=== PATIENT | female | born 1950 | race Caucasian/White ===

== ENCOUNTER 2020-06-14 06:25 | Day surgery (SDC) | payer MEDICARE ==
[~2020-06-14] VITALS: Ht 170.2 cm; Wt 86.2 kg
[2020-06-14] MEDS ORDERED: AVAPRO150 MG PO (06:41)
[2020-06-14] MEDS ORDERED: HYDROCHLOROTHIA25 MG PO (06:41)
[2020-06-14] MEDS ORDERED: ADULT LOW DOSE81 MG PO (06:41)
[2020-06-14] MEDS ORDERED: OMEGA 3 1,0001 EACH PO (06:41)
[2020-06-14] MEDS ORDERED: JANUVIA50 MG PO (06:42)
[2020-06-14] MEDS ORDERED: OMEPRAZOLE20 MG PO (06:42)
[2020-06-14] MEDS ORDERED: CRESTOR10 MG PO (06:42)
--- NOTE | 2020-06-14 07:57 | NUR ---
06/14/20 0757 Sally Hickey 0755-PATIENT ARRIVED TO PACU ON 2L NC AWAKE DROWSY DENIES PAIN OR NAUSEA. ABDOMEN SOFT. IVF INFUSING.
--- NOTE | 2020-06-14 16:13 | OR ---
[facility] [address] [place], [place] [address] Signed DATE OF OPERATION: 06/14/2020 SURGEON: Berta Braxton MD PREOPERATIVE DIAGNOSES: Longstanding gastroesophageal reflux, presumed hiatal hernia, controlled with PPI medication. POSTOPERATIVE DIAGNOSES: Hiatal hernia without associated esophagitis or Mckinley's epithelium. PROCEDURE: Esophagogastroduodenoscopy with biopsy. ANESTHESIA: Intravenous sedation, fentanyl 100 mcg, Versed 3 mg. INDICATION: This 69-year-old white woman is a patient Dr. Montenegro at [facility] and is referred for upper endoscopy for a longstanding reflux disease. She has failed treatment without PPI medication as regards to recurrence of symptoms. She currently has no dysphagia or substernal burning pain. She is here at this time to undergo upper endoscopy to better characterize the level of esophagitis and to assess for Mckinley's epithelium and she has never had endoscopic evaluation of the esophagus before. She understands the risks of bleeding, infection, perforation, and so forth and wished to proceed. FINDINGS: The esophagus was essentially normal with no evidence of esophagitis or Mckinley's epithelium. There was a hiatal hernia indeed. Stomach and duodenum were normal. CLOtest was negative 20 minutes post procedure. DESCRIPTION OF PROCEDURE: The patient was brought to the endoscopy suite and given topical Hurricaine spray hypopharyngeal anesthesia and placed in lateral decubitus position. She was given intravenous sedation to the point of slurred speech and nystagmus with full cardiopulmonary monitoring. A bite block was placed. An Olympus video upper endoscope was passed in the hypopharynx. The vocal cords were well visualized and found to be normal. The scope was advanced to the esophagus throughout its length. It appeared normal including the distal portion without signs of Mckinley's epithelium stricture, neoplasm or varices. The scope was advanced to the stomach, which was insufflated with Electronically Signed By: BERTA BRAXTON MD 06/14/20 1613 PATIENT NAME: JERARDO CHAU OPERATIVE REPORT DATE OF : 50 REPORT #: [id number] PHYSICIAN: BERTA BRAXTON MD PCP: CRYSTAL VALDEZ REPORT IS CONFIDENTIAL AND NOT TO BE RELEASED WITHOUT AUTHORIZATION [facility] [address] [place], [place] [address] Signed air. Rugal folds were normal. Antral motility was normal. The pylorus was normal and the scope was passed through into the duodenum, which was normal. Biopsies were taken of the second and third portions. A careful inspection of bulbar portion showed no ulceration. The scope was withdrawn to the antrum where biopsies were obtained for both MAGGI and pathologic testing. Retroflexed view was undertaken confirming a hiatal hernia, moderate in size. The scope was straightened, withdrawn and distal esophageal biopsies were obtained though there was no sign of abnormality proper. Careful withdrawal of scope showed only minimal superficial nodular changes of the mucosa. Biopsies were taken of the mid esophagus. Scope was carefully withdrawn further and there were no other findings of concern. The patient was taken to the recovery room in good condition. CONCLUDING DIAGNOSIS: Hiatal hernia without sign of active esophagitis on PPI medication. Mindful of the potential side effects of PPI medication, it is most likely she would benefit from continued use of those for symptom control as the lesser agents such as H2 blockers have been ineffective completely. We have reviewed the potential side effects of PPI medication, but in aggregate, the risk and benefit ratio would favor continued use of that medication. Berta Braxton MD JM/MODL /[id number] cc: Lyly Montenegro MD Copies: LYLY MONTENEGRO MD ~ Electronically Signed By: BERTA BRAXTON MD 06/14/20 1613 PATIENT NAME: KANDIJERARDONATHANIEL BILL OPERATIVE REPORT DATE OF : 50 REPORT #: [id number] PHYSICIAN: BERTA BRAXTON MD PCP: CRYSTAL VALDEZ REPORT IS CONFIDENTIAL AND NOT TO BE RELEASED WITHOUT AUTHORIZATION
--- NOTE | 2020-06-15 10:03 | PATH ---
[facility] [address] [place], [place] [address] Signed SPECIMEN(S): A DUODENUM SPECIMEN(S): B ANTRUM SPECIMEN(S): C DISTAL ESOPHAGUS SPECIMEN(S): D MID ESOPHAGUS SPECIMEN SOURCE: A. DUODENUM B. ANTRUM C. DISTAL ESOPHAGUS D. MID ESOPHAGUS CLINICAL HISTORY: GERD. MICROSCOPIC DESCRIPTION: A, B. Histologic sections of all submitted blocks are examined by light microscopy. These findings, together with the gross examination, support the pathologic diagnosis. C. Sections reveal biopsies of esophageal mucosa composed of both glandular and squamous mucosa. The squamous mucosa has a mildly prominent basal cell layer, but rete ridges are not elongated. Intraepithelial eosinophils are not a feature. Small numbers of plasma cells and lymphocytes are present within the squamous mucosa. The glandular mucosa has an intact surface epithelium and has retained mucus secreting ability. The lamina propria contains a few plasma cells and lymphocytes. No goblet cells are seen. There is no evidence of malignancy or atypia. D. Sections reveal a biopsy of esophageal mucosa composed of stratified squamous nonkeratinizing epithelium. The basal cell layer is not prominent and rete ridges are not elongated. No intraepithelial lymphocytes are seen. There is no evidence of malignancy or atypia. LJA:cml FINAL PATHOLOGIC DIAGNOSIS: A. Mucosa, duodenum, biopsy: - Small intestinal mucosa with normal villiform architecture, no microscopic pathologic diagnosis. B. Mucosa, antrum, biopsy: - No microscopic pathologic diagnosis. - Negative for the presence of bacteria morphologically consistent with PATIENT NAME: JERARDO CHAU PATHOLOGY DATE OF : 50 REPORT #: [id number] PHYSICIAN: ROHITH SOTO PCP: CRYSTAL VALDEZ REPORT IS CONFIDENTIAL AND NOT TO BE RELEASED WITHOUT AUTHORIZATION [facility] [address] [place], [place] [address] Signed Helicobacter on HE stained sections. C. Mucosa, distal esophagus, biopsy: - Mild chronic esophagitis with features suggestive but not diagnostic of reflux. D. Mucosa, mid esophagus, biopsy: - No microscopic pathologic diagnosis. LJA:cml:C2NR GROSS DESCRIPTION: Four specimens are received in four containers, labeled "VR." A. The specimen, labeled "VR, 1," and designated on the requisition "duodenum," is received in formalin and consists of two rosa soft tissue fragments that measure 0.3 cm in greatest dimension. The specimen is entirely submitted in cassette (A1). B. The specimen, labeled "VR, 2," and designated on the requisition "antrum," is received in formalin and consists of two rosa soft tissue fragments that measure 0.4 cm in greatest dimension. The specimen is entirely submitted in cassette (B1). C. The specimen, labeled "VR, 3," and designated on the requisition "distal esophagus," is received in formalin and consists of four thin, rosa soft tissue fragments that measure 0.5 cm in greatest dimension. The specimen is entirely submitted in cassette (C1). D. The specimen, labeled "VR, 4," and designated on the requisition "mid esophagus," is received in formalin and consists of one thin rosa soft tissue fragment that measures 0.4 cm in greatest dimension. The specimen is entirely submitted in cassette (D1). AT (under the direct supervision of a pathologist) The Gross Description was prepared using a voice recognition system. The report was reviewed for accuracy; however, sound-alike word errors, addition and/or deletions may occur. If there is any question about this report, please contact Client Services. PERFORMING LABORATORY: The technical component was performed by [facility] [employer] [facility], [address] [place] [address] (Machine Room Engineer: Bisi Bansal MD; CLIA# [id number]). Professional interpretation was performed by [facility], [address] [place], [place] [address] (CLIA# [id number]). Diagnostician: Yung Duong MD Pathologist PATIENT NAME: JERRADO CHAU PATHOLOGY DATE OF : 50 REPORT #: [id number] PHYSICIAN: ROHITH SOTO PCP: CRYSTAL VALDEZ REPORT IS CONFIDENTIAL AND NOT TO BE RELEASED WITHOUT AUTHORIZATION [facility] [address] [place] [facility] [place], [place] [address] Signed Electronically Signed 06/15/2020 Copies: ~ PATIENT NAME: JERARDO CHAU PATHOLOGY DATE OF : 50 REPORT #: [id number] PHYSICIAN: ROHITH SOTO PCP: CRYSTAL VALDEZ REPORT IS CONFIDENTIAL AND NOT TO BE RELEASED WITHOUT AUTHORIZATION
== END 2020-06-14 08:27 | disposition home or self-care (01) ==
LOC: OPS 06:25 → DS 06:25 → OPS 06:45
PROVIDERS: Surgery
PROC: 0DB78ZX Excision of Stomach, Pylorus, Via Natural or Artificial Opening Endoscopic, Diagnostic (ICD-10-PCS; 2020-06-14)
PROC: 0DB28ZX Excision of Middle Esophagus, Via Natural or Artificial Opening Endoscopic, Diagnostic (ICD-10-PCS; 2020-06-14)
PROC: 0DB38ZX Excision of Lower Esophagus, Via Natural or Artificial Opening Endoscopic, Diagnostic (ICD-10-PCS; 2020-06-14)
PROC: 0DB98ZX Excision of Duodenum, Via Natural or Artificial Opening Endoscopic, Diagnostic (ICD-10-PCS; principal; 2020-06-14 06:45)
DX: K20.9 Esophagitis, unspecified (principal); K21.9 Gastro-esophageal reflux disease without esophagitis; K44.9 Diaphragmatic hernia without obstruction or gangrene; E11.9 Type 2 diabetes mellitus without complications; I10 Essential (primary) hypertension; J45.909 Unspecified asthma, uncomplicated; Z88.5 Allergy status to narcotic agent; Z79.82 Long term (current) use of aspirin; Z79.899 Other long term (current) drug therapy
CPT/HCPCS: G0500; J2250; J3010; J7121

== ENCOUNTER 2022-06-17 20:11 | Emergency (ER) | payer MEDICARE ==
[~2022-06-17] VITALS: Ht 170.2 cm; Wt 77.9 kg
--- NOTE | ~2022-06-17 | EKG ---
[facility] [address] [facility] [place], [place] [address] Draft EK completed, results pending confirmation PATIENT NAME: JERARDO CHAU Electrocardiogram DATE OF : 50 PHYSICIAN: PRELIMINARY REPORT #: [id number] REPORT IS CONFIDENTIAL AND NOT TO BE RELEASED WITHOUT AUTHORIZATION
[~2022-06-17 20:11] MED LIST: ADULT LOW DOSE81 MG PO; AVAPRO150 MG PO; CRESTOR10 MG PO; HYDROCHLOROTHIA25 MG PO; JANUVIA50 MG PO; OMEGA 3 1,0001 EACH PO; OMEPRAZOLE20 MG PO
[2022-06-17] MEDS ORDERED: JARDIANCE10 MG PO (20:28)
[2022-06-17] MEDS ORDERED: HEARTBURN PREVE20 MG PO (20:28)
== END 2022-06-17 23:31 | disposition short-term general hospital (02) ==
LOC: ED 20:11
DX: I21.4 Non-ST elevation (NSTEMI) myocardial infarction (principal); Z20.822 Contact with and (suspected) exposure to COVID-19; Z87.891 Personal history of nicotine dependence; Z88.8 Allergy status to other drugs, medicaments and biological substances; Z88.5 Allergy status to narcotic agent; Z79.899 Other long term (current) drug therapy; Z79.82 Long term (current) use of aspirin
CPT/HCPCS: 36415; 71045; 80053; 81001; 83880; 84484; 85025; 85730; 87502; 93005; 93010; 96374; 99285-25; A9270; C9803; J1644; U0003

== ENCOUNTER 2023-07-19 11:01 | Emergency (ER) | payer MEDICARE ==
[~2023-07-19] VITALS: Ht 170.2 cm; Wt 70.6 kg
--- OUTSIDE RECORDS SUMMARY | ~2023-07-19 | XMS | Continuity of Care Document ---
Demographics + + + | Address | [address] | | | [place] [address] | + + + | Preferred Language | Unknown | + + + | Marital Status | | + + + | Holiness Affiliation | Unknown | + + + | Race | White | + + + | Ethnic Group | Not or | + + + Author + + + | Author | [facility] | + + + | Organization | [facility] | + + + | Address | [address] [facility] | | | [place] [address] | + + + | Phone | | + + + Care Team Providers + + + + | Care Lead Security Officer Name | Role | Phone | + + + + Unavailable | Unavailable | + + + + Unavailable | Unavailable | + + + + Allergies and Intolerances + + + + + + | date | description | facility | reaction | severity | + + + + + + | (no date) | codeine | [facility] | (no reaction) | (no severity) | | | [facility] | | | + + + + + + | (no date) | lisinopril | [facility] | (no reaction) | (no severity) | | | | [facility] | | | + + + + + + Encounters No information. Functional Status No information. Immunizations No information. Medications + + + + | date | description | facility | + + + + | 2022-06-22 00:00 | IRBESARTAN | [facility] | + + + + | 2022-06-22 00:00 | EMPAGLIFLOZIN | [facility] | + + + + | 2022-06-22 00:00 | ASPIRIN | [facility] | + + + + | 2022-06-22 00:00 | FAMOTIDINE | [facility] | + + + + | 2022-06-22 00:00 | ROSUVASTATIN CALCIUM | [facility] | + + + + Problems + + + + | date | description | facility | + + + + | 2022-06-17 00:00 | Non-ST elevation | [facility] | | | myocardial infarction | | | | (NSTEMI) | | + + + + Procedures No information. Results/Labs +--------+--------+ +---------+--------+---------+ | test | date | facility | value | unit | notes | +--------+--------+ +---------+--------+---------+ + + | Result panel 1 | + + + + + +-------+ + + | | 2022-06-17 | [facility] | 9.5 | (missing) | (missing) | | (unavailable | 20:26 | [facility] | | | | + + + +-------+ + + + + | Result panel 2 | + + + + + +--------+ + + | | 2022-06-17 | [facility] | 58.9 | (missing) | (missing) | | (unavailable | 20:26 | [facility] | | | | + + + +--------+ + + + + | Result panel 3 | + + + + + +--------+ + + | | 2022-06-17 | [facility] | 32.7 | (missing) | (missing) | | (unavailable | 20:26 | [facility] | | | | + + + +--------+ + + + + | Result panel 4 | + + + + + +-------+ + + | | 2022-06-17 | [facility] | 5.3 | (missing) | (missing) | | (unavailable | 20:26 | [facility] | | | | + + + +-------+ + + + + | Result panel 5 | + + + + + +-------+ + + | | 2022-06-17 | [facility] | 2.0 | (missing) | (missing) | | (unavailable | 20:26 | [facility] | | | | + + + +-------+ + + + + | Result panel 6 | + + + + + +-------+ + + | | 2022-06-17 | [facility] | 1.1 | (missing) | (missing) | | (unavailable | 20:26 | [facility] | | | | + + + +-------+ + + + + | Result panel 7 | + + + + + +--------+ + + | | 2022-06-17 | [facility] | 32.6 | (missing) | (missing) | | (unavailable | 20:26 | [facility] | | | | + + + +--------+ + + + + | Result panel 8 | + + + + + +--------+ + + | | 2022-06-17 | [facility] | 5.01 | (missing) | (missing) | | (unavailable | 20:26 | [facility] | | | | + + + +--------+ + + + + | Result panel 9 | + + + + + +--------+ + + | | 2022-06-17 | [facility] | 15.2 | (missing) | (missing) | | (unavailable | 20:26 | [facility] | | | | + + + +--------+ + + + + | Result panel 10 | + + + + + +-------+---------+ + | | 2022-06-17 | [facility] | 127 | mg/dL | (missing) | | (unavailable | 20:26 | [facility] | | | | + + + +-------+---------+ + + + | Result panel 11 | + + + + + +------+---------+ + | | 2022-06-17 | [facility] | 13 | mg/dL | (missing) | | (unavailable | 20:26 | [facility] | | | | + + + +------+---------+ + + + | Result panel 12 | + + + + + +--------+---------+ + | | 2022-06-17 | [facility] | 1.11 | mg/dL | (missing) | | (unavailable | 20:26 | [facility] | | | | + + + +--------+---------+ + + + | Result panel 13 | + + + + + +------+ + + | | 2022-06-17 | [facility] | 53 | (missing) | (missing) | | (unavailable | 20:26 | [facility] | | | | + + + +------+ + + + + | Result panel 14 | + + + + + +---------+ + + | | 2022-06-17 | [facility] | 11.71 | (missing) | (missing) | | (unavailable | 20:26 | [facility] | | | | + + + +---------+ + + + + | Result panel 15 | + + + + + +-------+ + + | | 2022-06-17 | [facility] | 142 | (missing) | (missing) | | (unavailable | 20:26 | [facility] | | | | + + + +-------+ + + + + | Result panel 16 | + + + + + +-------+ + + | | 2022-06-17 | [facility] | 3.4 | (missing) | (missing) | | (unavailable | 20:26 | [facility] | | | | + + + +-------+ + + + + | Result panel 17 | + + + + + +-------+ + + | | 2022-06-17 | [facility] | 107 | (missing) | (missing) | | (unavailable | 20:26 | [facility] | | | | + + + +-------+ + + + + | Result panel 18 | + + + + + +------+ + + | | 2022-06-17 | [facility] | 21 | (missing) | (missing) | | (unavailable | 20:26 | [facility] | | | | + + + +------+ + + + + | Result panel 19 | + + + + + +--------+ + + | | 2022-06-17 | [facility] | 17.4 | (missing) | (missing) | | (unavailable | 20:26 | [facility] | | | | + + + +--------+ + + + + | Result panel 20 | + + + + + +--------+ + + | | 2022-06-17 | [facility] | 43.4 | (missing) | (missing) | | (unavailable | 20:26 | [facility] | | | | + + + +--------+ + + + + | Result panel 21 | + + + + + +-------+---------+ + | | 2022-06-17 | [facility] | 9.0 | mg/dL | (missing) | | (unavailable | 20:26 | [facility] | | | | + + + +-------+---------+ + + + | Result panel 22 | + + + + + +-------+ + + | | 2022-06-17 | [facility] | 7.7 | (missing) | (missing) | | (unavailable | 20:26 | [facility] | | | | + + + +-------+ + + + + | Result panel 23 | + + + + + +-------+ + + | | 2022-06-17 | [facility] | 3.4 | (missing) | (missing) | | (unavailable | 20:26 | [facility] | | | | + + + +-------+ + + + + | Result panel 24 | + + + + + +-------+ + + | | 2022-06-17 | [facility] | 4.3 | (missing) | (missing) | | (unavailable | 20:26 | [facility] | | | | + + + +-------+ + + + + | Result panel 25 | + + + + + +--------+ + + | | 2022-06-17 | [facility] | 0.79 | (missing) | (missing) | | (unavailable | 20:26 [facility] | | | | + + + +--------+ + + + + | Result panel 26 | + + + + + +-------+ + + | | 2022-06-17 | [facility] | 0.6 | (missing) | (missing) | | (unavailable | 20:26 [facility] | | | | + + + +-------+ + + + + | Result panel 27 | + + + + + +------+ + + | | 2022-06-17 | [facility] | 24 | (missing) | (missing) | | (unavailable | 20:26 | [facility] | | | | + + + +------+ + + + + | Result panel 28 | + + + + + +------+ + + | | 2022-06-17 | [facility] | 19 | (missing) | (missing) | | (unavailable | 20:26 | [facility] | | | | + + + +------+ + + + + | Result panel 29 | + + + + + +------+ + + | | 2022-06-17 | [facility] | 67 | (missing) | (missing) | | (unavailable | 20:26 | [facility] | | | | + + + +------+ + + + + | Result panel 30 | + + + + + +--------+ + + | | 2022-06-17 | [facility] | 86.7 | (missing) | (missing) | | (unavailable | 20:26 | [facility] | | | | + + + +--------+ + + + + | Result panel 31 | + + + + + +--------+ + + | | 2022-06-17 | [facility] | 30.3 | (missing) | (missing) | | (unavailable | 20:26 | [facility] | | | | + + + +--------+ + + + + | Result panel 32 | + + + + + +--------+ + + | | 2022-06-17 | [facility] | 35.0 | (missing) | (missing) | | (unavailable | 20:26 | [facility] | | | | + + + +--------+ + + + + | Result panel 33 | + + + + + +--------+ + + | | 2022-06-17 | [facility] | 15.7 | (missing) | (missing) | | (unavailable | 20:26 | [facility] | | | | + + + +--------+ + + + + | Result panel 34 | + + + + + +-------+ + + | | 2022-06-17 | [facility] | 258 | (missing) | (missing) | | (unavailable | 20:26 | [facility] | | | | + + + +-------+ + + + + | Result panel 35 | + + + + + + + + + | | 2022-06-17 | [facility] | NEGATIVE | (missing) | (missing) | | (unavailable | 20:34 | [facility] | | | | + + + + + + + + + | Result panel 36 | + + + + + + + + + | | 2022-06-17 | [facility] | NEGATIVE | (missing) | (missing) | | (unavailable | 20:34 | [facility] | | | | + + + + + + + + + | Result panel 37 | + + + + + + + + + | | 2022-06-17 | [facility] | NEGATIVE | (missing) | (missing) | | (unavailable | 20:34 | [facility] | | | | + + + + + + + + + | Result panel 38 | + + + + + + + + + | | 2022-06-17 | [facility] | NEGATIVE | (missing) | (missing) | | (unavailable | 20:34 | [facility] | | | | + + + + + + + + + | Result panel 39 | + + + + + + + + + | | 2022-06-17 | [facility] | YELLOW | (missing) | (missing) | | (unavailable | 21:47 | [facility] | | | | + + + + + + + + + | Result panel 40 | + + + + + +---------+ + + | | 2022-06-17 | [facility] | CLEAR | (missing) | (missing) | | (unavailable | 21:47 | [facility] | | | | + + + +---------+ + + + + | Result panel 41 | + + + + + + + + + | | 2022-06-17 | [facility] | >=1000 | (missing) | (missing) | | (unavailable | 21:47 | [facility] | | | | + + + + + + + + + | Result panel 42 | + + + + + + + + + | | 2022-06-17 | [facility] | NEGATIVE | (missing) | (missing) | | (unavailable | 21:47 | [facility] | | | | + + + + + + + + + | Result panel 43 | + + + + + + + + + | | 2022-06-17 | [facility] | NEGATIVE | (missing) | (missing) | | (unavailable | 21:47 | [facility] | | | | + + + + + + + + + | Result panel 44 | + + + + + + + + + | | 2022-06-17 | [facility] | <=1.005 | (missing) | (missing) | | (unavailable | 21:47 | [facility] | | | | + + + + + + + + + | Result panel 45 | + + + + + + + + + | | 2022-06-17 | [facility] | NEGATIVE | (missing) | (missing) | | (unavailable | 21:47 | [facility] | | | | + + + + + + + + + | Result panel 46 | + + + + + +-------+ + + | | 2022-06-17 | [facility] | 6.5 | (missing) | (missing) | | (unavailable | 21:47 | [facility] | | | | + + + +-------+ + + + + | Result panel 47 | + + + + + + + + + | | 2022-06-17 | [facility] | NEGATIVE | (missing) | (missing) | | (unavailable | 21:47 | [facility] | | | | + + + + + + + + + | Result panel 48 | + + + + + + + + + | | 2022-06-17 | [facility] | NORMAL | (missing) | (missing) | | (unavailable | 21:47 | [facility] | | | | + + + + + + + + + | Result panel 49 | + + + + + + + + + | | 2022-06-17 | [facility] | NEGATIVE | (missing) | (missing) | | (unavailable | 21:47 | [facility] | | | | + + + + + + + + + | Result panel 50 | + + + + + + + + + | | 2022-06-17 | [facility] | NEGATIVE | (missing) | (missing) | | (unavailable | 21:47 | [facility] | | | | + + + + + + + + + | Result panel 51 | + + + + + +------+ + + | | 2022-06-17 | [facility] | No | (missing) | (missing) | | (unavailable | 21:47 | [facility] | | | | + + + +------+ + + + + | Result panel 52 | + + + + + + + + + | | 2022-06-17 | [facility] | CLEAN CATCH | (missing) | (missing) | | (unavailable | 21:47 | [facility] | | | | + + + + + + + + + | Result panel 53 | + + + + + + + + + | | 2022-06-17 | [facility] | 1746.9 | (missing) | (missing) | | (unavailable | 22:21 | [facility] | | | | + + + + + + + Social History No information. Vital Signs + + + +---------+ | date | measurement | value | units | + + + +---------+ | 2022-06-17 00:00 | BMI | 26.9 | kg/m2 | + + + +---------+ | 2022-06-17 00:00 | BP_diastolic | 103 | mmHg | + + + +---------+ | 2022-06-17 00:00 | BP_systolic | 147 | mmHg | + + + +---------+ | 2022-06-17 00:00 | heart_rate | 93 | /min | + + + +---------+ | 2022-06-17 00:00 | height_metric | 170.18 | cm | + + + +---------+ | 2022-06-17 00:00 | height_standard | 67 | in | + + + +---------+ | 2022-06-17 00:00 | o2_saturation | 98 | % | + + + +---------+ | 2022-06-17 00:00 | respiration_rate | 14 | /min | + + + +---------+ | 2022-06-17 00:00 | temperature_metric | 36.17 | C | | | | | | + + + +---------+ | 2022-06-17 00:00 | | 97.1 | F | | | temperature_standar | | | | | d | | | + + + +---------+ | 2022-06-17 00:00 | weight_metric | 77.9 | kg | + + + +---------+ | 2022-06-17 00:00 | weight_standard | 171.74 | lb | + + + +---------+"
[~2023-07-19 11:01] MED LIST changes: +HEARTBURN PREVE20 MG PO; +JARDIANCE10 MG PO
[2023-07-19 11:36] LABS: BASOPHILS 1.1 % (0-2); EOSINOPHILS 3.4 % (0-6); HEMATOCRIT 45.1 % (35.0-50.0); HEMOGLOBIN 14.9 g/dL (12.0-18.0); MCH 27.5 (27-36); MCHC 33.1 g/dl (30-36); MCV 83.2 fl (81-99); MONOCYTES 4.8 % (0-12); NEUTROPHILS 46.7 % (39-80); PLATELET COUNT 310 K/uL (140-440); RBC 5.42 M/ul (4.3-5.7); RDW 15.1 (10.5-15.0)
[2023-07-19 11:48] LABS: ALBUMIN 3.7 g/dL (3.4-5.0); ALBUMIN/GLOBULIN RATIO 0.9 (1.1-2.4); ANION GAP 14.9 (7-21); BILIRUBIN, TOTAL 0.5 ng/dL (0.2-1.0); BUN/CREATININE RATIO 13.86 (6.0-28.6); CALCIUM 9.4 mg/dL (8.5-10.1); CREATININE, SERUM 1.37 mg/dL (0.55-1.02); POTASSIUM 3.9 mmol/L (3.5-5.1); PROTEIN, TOTAL 7.8 g/dL (6.4-8.2)
[2023-07-19 14:31] VITALS: BP 114/80
== END 2023-07-19 14:38 | disposition home or self-care (01) ==
LOC: ED 11:01
PROVIDERS: Emergency Medicine
DX: S01.81XA Laceration without foreign body of other part of head, initial encounter (principal); W22.8XXA Striking against or struck by other objects, initial encounter; Z87.891 Personal history of nicotine dependence; Z88.8 Allergy status to other drugs, medicaments and biological substances; Z88.5 Allergy status to narcotic agent; Z79.899 Other long term (current) drug therapy; Z79.82 Long term (current) use of aspirin
CPT/HCPCS: 12011; 36415; 70450; 80053; 85025; 99283-25

== ENCOUNTER 2023-11-23 17:35 | Inpatient (IN) | payer MEDICARE ==
[~2023-11-23] VITALS: Ht 170.2 cm; Wt 74.5 kg
--- NOTE | ~2023-11-23 | EKG ---
[facility] [address] [facility] [place], [place] [address] Draft EK completed, results pending confirmation PATIENT NAME: JERARDO CHAU Electrocardiogram DATE OF : 50 PHYSICIAN: PRELIMINARY REPORT #: [id number] REPORT IS CONFIDENTIAL AND NOT TO BE RELEASED WITHOUT AUTHORIZATION
[2023-11-23 18:19] LABS: BASOPHILS 0.4 % (0-2); EOSINOPHILS 1.2 % (0-6); HEMATOCRIT 39.2 % (35.0-50.0); HEMOGLOBIN 12.5 g/dL (12.0-18.0); LYMPHOCYTES 12.9 % (24-44); MCH 24.9 (27-36); MCHC 31.9 g/dl (30-36); MONOCYTES 3.3 % (0-12); NEUTROPHILS 82.2 % (39-80); PLATELET COUNT 357 K/uL (140-440); RBC 5.03 M/ul (4.3-5.7); RDW 16.1 (10.5-15.0)
[2023-11-23 18:33] LABS: ALBUMIN 3.6 g/dL (3.4-5.0); ALBUMIN/GLOBULIN RATIO 0.97 (1.1-2.4); ALKALINE PHOSPHATASE 77 U/L (46-116); ALT (SGPT) 17 U/L (14-59); ANION GAP 14.3 (7-21); AST (SGOT) 27 U/L (15-37); BILIRUBIN, TOTAL 0.5 ng/dL (0.2-1.0); BUN/CREATININE RATIO 18.79 (6.0-28.6); CALCIUM 8.9 mg/dL (8.5-10.1); CARBON DIOXIDE 24 mmol/L (21-32); CHLORIDE 103 mmol/L (98-107); CREATININE, SERUM 1.49 mg/dL (0.55-1.02); GLOMERULAR FILTRATION RATE,EST 37 mL/min (>60); POTASSIUM 4.3 mmol/L (3.5-5.1); PROTEIN, TOTAL 7.3 g/dL (6.4-8.2); UREA NITROGEN 28 mg/dL (7-18)
[2023-11-23 22:00] LABS: LACTIC ACID, BLOOD 1.5 mmol/L (0.4-2.0)
[2023-11-23 22:02] VITALS: BP 122/68
--- NOTE | 2023-11-23 22:24 | NUR ---
REPORT RECEIVED FROM TELEPHONE CLAIMS REPRESENTATIVE. PATIENT TRASFERRED FROM STRETCHER TO BED INDEPENDENTLY WITH MINIMAL SBA. PATIENT WEIGHT OBTAINED. ASSESSMENT COMPLETE. CHAPSTICK PROVIDED. 2 WARM BLANKETS PROVIDED. PATIENT HAS NO FURTHER NEEDS. CALL LIGHT IN REACH.
--- NOTE | 2023-11-23 22:50 | NUR ---
pt ARRIVES TO [facility] FLOOR VIA STRETCHER, AMBULATORY TO HOSPITAL BED. BLANCHABLE REDENNED AREA NOTED ON BACKSIDE. IV ANTIBIOTIC INFUSING WNL, SITE FLUSHED WNL. ORIENTATION TO ROOM PROVIDED. BED ALARM SET. CALL LIGHT WITHIN REACH. WRITTEN AND VERBAL EDUCATION PROVIDED ON DIVERTICULITIS. JUAN SALEEM IN ROOM TO ADMINISTER MEDICATIONS.
--- NOTE | 2023-11-23 22:52 | NUR ---
PATIENT REPORTS 8/10 PAIN IN ABD. PRN PAIN MEDICATION ADMINISTERED, SEE MAR. IV ABX INFUSING PER ORDER. PATIENT HAS NO FURTHER NEEDS. CALL LIGHT IN REACH.
[2023-11-23] MEDS ORDERED: ELIQUIS5 MG (23:03)
[2023-11-24 00:41] VITALS: BP 91/51
--- NOTE | 2023-11-24 00:55 | NUR ---
PATIENT UP TO BSC WITH MINIMAL SBA TO VOID. URINE SAMPLE SENT TO LAB. PATIENT BACK TO BED. PATIENT REPORTS PAIN. PRN PAIN MEDICATION ADMINISTERED PER PATIENT REQUEST. VS AND I&Os OBTAINED AND RECORDED. PATEINT HAS NO FURTHER NEEDS. CALL LIGHT IN REACH.
--- NOTE | 2023-11-24 00:57 | NUR ---
PHONE CALL FROM , UPDATE ON pt BP 91/51. ORDERS REVIEWED WITH MD, NEW ORDER RECEIVED FOR IV ANTIBIOTICS, PHARMACY TO RENALLY DOSE. NEW ORDERS FOR AM LABS RECEIVED. ALL ORDERS REPEATED BACK TO VERIFY. PRIMARY RN UPDATED.
[2023-11-24 00:59] LABS: BILIRUBIN, URINE NEGATIVE (negative); BLOOD/HGB, URINE NEGATIVE (Negative); KETONE, URINE NEGATIVE (Negative); LEUK ESTERASE, URINE NEGATIVE (negative); NITRITE, URINE NEGATIVE (negative)
[2023-11-24 01:10] LABS: CASTS, URINE NONE SEEN \\lpf; COLLECTION TYPE, URINE CLEAN CATCH; CRYSTALS, URINE NONE SEEN (0-1+); EPITHELIAL CELLS, URINE SQUAMOUS 1+ /lpf (0-1+); RED BLOOD CELLS, URINE 0-1 /hpf (0-5); REFLEX CULTURE, URINE No (No); WHITE BLOOD CELLS, URINE 0-1 /HPF (0-5)
--- NOTE | 2023-11-24 02:09 | NUR ---
CALL LIGHT ANSWERED. PATIENT UP TO BSC WITH MINIMAL SBA TO VOID YELLOW URINE. PATIENT BACK TO BED. PATIENT REPORTS NO FURTHER NEEDS. CALL LIGHT IN REACH.
--- NOTE | 2023-11-24 03:15 | NUR ---
CALL LIGHT ANSWERED. PATIENT REPORTS 7/10 SUPRAPUBIC PAIN. PRN PAIN MEDICATION GIVEN PER PATIENT REQUEST. ASSESSMENT COMPLETE. ABD SOFT AND GUARDED WITH PALPATION. BOWEL TONES ACTIVE. PATIENT HAS NO FURTHER NEEDS. CALL LIGHT IN REACH.
[2023-11-24 04:31] VITALS: BP 121/64
--- NOTE | 2023-11-24 05:00 | NUR ---
CALL LIGHT ANSWERED. PATIENT UP TO BSC WITH MINIMAL SBA TO VOID YELLOW URINE. PATIENT REPORTS FEELING NAUSEOUS. PATIENT BACK TO BED. VS AND I&Os OBTAINED AND RECORDED. PATIENT HAD EPISODE OF EMESIS. PRN NAUSEA MEDICATION ADMINISTERED. PATIENT REPORTS 6/10 PAIN IN SUPRAPUBIC AREA. PRN PAIN MEDICAION ADMINISTERED. PATIENT HAS NO FURTHER NEEDS. CALL LIGHT IN REACH.
[2023-11-24 05:30] LABS: BASOPHILS 0.3 % (0-2); EOSINOPHILS 0.2 % (0-6); HEMOGLOBIN 11.5 g/dL (12.0-18.0); LYMPHOCYTES 8.9 % (24-44); MCH 25.4 (27-36); MCV 77.1 fl (81-99); MONOCYTES 5.4 % (0-12); NEUTROPHILS 85.2 % (39-80); PLATELET COUNT 313 K/uL (140-440); RBC 4.54 M/ul (4.3-5.7); RDW 15.6 (10.5-15.0)
[2023-11-24 05:46] LABS: ALBUMIN 2.9 g/dL (3.4-5.0); ALBUMIN/GLOBULIN RATIO 0.85 (1.1-2.4); ANION GAP 13.5 (7-21); BILIRUBIN, TOTAL 0.7 ng/dL (0.2-1.0); BUN/CREATININE RATIO 17.02 (6.0-28.6); CALCIUM 8.6 mg/dL (8.5-10.1); CREATININE, SERUM 1.41 mg/dL (0.55-1.02); POTASSIUM 4.5 mmol/L (3.5-5.1); PROTEIN, TOTAL 6.3 g/dL (6.4-8.2)
[2023-11-24 06:04] LABS: MAGNESIUM 1.7 mg/dL (1.8-2.4); PHOSPHORUS, INORGANIC 3.5 mg/dL (2.5-4.9)
--- NOTE | 2023-11-24 06:25 | NUR ---
PATIENT RESTING IN BED. IV ABX INFUSING PER ORDER. NO FURTHER NEEDS. CALL LIGHT IN REACH.
--- NOTE | 2023-11-24 07:03 | NUR ---
ROUNDING ON PATIENT. PRN PAIN MEDICATION ADMINISTERED PER PATIENT REQUEST. CALL LIGHT IN REACH. NO FURTHER NEEDS.
--- NOTE | 2023-11-24 07:29 | CONS ---
[facility] [address] [place], [place] [address] Signed DATE OF CONSULTATION: 11/23/2023 CHIEF COMPLAINT: Passed out. HISTORY OF PRESENT ILLNESS: Jennifer is a 73-year-old female who was out the local [employer] with her . She was not feeling good, so he went to go and get the car to take her home. She kind of passed out, slid down the chair. They brought her to the local emergency room by EMS. Initially, her EKG was fine, but she did have some suprapubic tenderness. White count was elevated. CT scan shows sigmoid diverticulitis with some locules of air around the colon out in the abdomen. She is also on aspirin and Eliquis because of her history of DVT and pulmonary emboli. She has been admitted and started on cefepime and Flagyl, some IV fluids. She was given some morphine with good results. PAST MEDICAL HISTORY: Hypoglycemia, hypertension, kidney issues, PE, and gastroesophageal reflux disease, also fibroid tumor. PAST SURGICAL HISTORY: Open cholecystectomy, laparoscopic-assisted hysterectomy, colonoscopy with colonic polyps and probably diverticulosis in [place], [place]. SOCIAL HISTORY: She stopped smoking. She does not drink. She is to Sea at [phone]. She is retired. She has two of her own children and three step children. Dr. Lyly Montenegro is her primary care provider. FAMILY HISTORY: Cardiac issues and diabetes. REVIEW OF SYSTEMS: She had 10 systems reviewed. She told me about her surgeries. ALLERGIES: Lisinopril and codeine. MEDICATIONS: Aspirin, irbesartan, fish oil, lovastatin, Jardiance, Pepcid, Eliquis, Lasix, Aldactone. PHYSICAL EXAMINATION: VITAL SIGNS: Her blood pressure is 122/68, heart rate 76, respiratory rate 18, temperature is 98.6. She is 98% on room air. She is 5 feet 7 inches at 74 kg with a Electronically Signed By: ELVIN RUSSELL MD 11/24/23 0729 PATIENT NAME: JENNIFER CHAU CONSULTATION DATE OF : 50 REPORT #: [id number] PHYSICIAN: ELVIN RUSSELL MD PCP: LYLY MONTENEGRO MD REPORT IS CONFIDENTIAL AND NOT TO BE RELEASED WITHOUT AUTHORIZATION [facility] [address] [place] [id number] Signed body mass index of 25. GENERAL: Jennifer is a 73-year-old female, lying supine in her hospital bed. She is not systemically ill or toxic. She is complaining of a little bit of suprapubic abdominal pain. LUNGS: Clear to auscultation bilaterally. HEART: Regular rate and rhythm without murmurs. ABDOMEN: Flat and soft. She certainly has some suprapubic tenderness, but no peritoneal signs or symptoms diffusely. LABORATORY DATA: Her white blood count 13, mean cell volume 78, hemoglobin 12. BUN 28, creatinine 1.49, glucose 164. Lactic acid 1.5, albumin 3.6. Liver function tests are negative. EKG showed normal sinus rhythm. Blood cultures are pending. RADIOGRAPHIC STUDIES: CT scan of abdomen and pelvis is reviewed by report only. I could not bring up the images on the computer tonight. She said to have sigmoid diverticulitis with locules of air around the sigmoid colon and some out of the abdomen. ASSESSMENT/PLAN: Jennifer is a 73-year-old female who has presented with perforated diverticulitis, but she is also fully anticoagulant, Eliquis and aspirin because of history of PE. She has been admitted, IV fluids and started on cefepime and Flagyl. We asked our Internal Medicine Service to see her. Our new hospitalists apparently is aware of some medication that can reverse Eliquis. We will have to talk our pharmacist first thing in the morning. Otherwise, it is extremely dangers to do her surgery at this point. I have reviewed this with Jennifer. She has expressed understanding and agrees above plan. Elvin Russell MD [facility]/MODL /[id number] cc: MD Elvin Orta MD Electronically Signed By: ELVIN RUSSELL MD 11/24/23 0729 PATIENT NAME: JENNIFER CHAU CONSULTATION DATE OF : 50 REPORT #: [id number] PHYSICIAN: ELVIN RUSSELL MD PCP: LYLY MONTENEGRO MD REPORT IS CONFIDENTIAL AND NOT TO BE RELEASED WITHOUT AUTHORIZATION [address] [address] Signed Copies: LYLY MONTENEGRO MD, ANDREW L MD ~ Electronically Signed By: ELVIN RUSSELL MD 11/24/23 0729 PATIENT NAME: JENNIFER CHAU CONSULTATION DATE OF : 50 REPORT #: [id number] PHYSICIAN: ELVIN RUSSELL MD PCP: LYLY MONTENEGRO MD REPORT IS CONFIDENTIAL AND NOT TO BE RELEASED WITHOUT AUTHORIZATION
--- NOTE | 2023-11-24 07:30 | NUR ---
RECEIVED REPORT FROM JUAN SALEEM. PT STATES SHE FEELS SHE NEEDS TO USE BSC, PT SITS UP IN BED AND BEGINS VOMITTING INTO TRASH CAN AT BEDSIDE. PT STATES SHE DOES NOT FEEL LIKE SHE NEEDS TO USE BSC ANYMORE, WOULD LIKE TO LIE DOWN, UNDERWEAR AND BEDDING IS DRY. DR. RUSSELL TO BEDSIDE TO UPDATE PT ON POC. PT STATES NO FURTHER NEEDS AT THIS TIME, CALL LIGHT WITHIN REACH, BED RAILS UP, EMESIS BAG WITHIN REACH, HOB >30 DEGREES.
--- NOTE | 2023-11-24 08:30 | NUR ---
PT ASSISTED FROM BED TO BSC, PT WITH 200 MLS YELLOW/GREEN EMESIS. PT TRANFERED BACK TO BED. PROVIDED MOUTH SWAB. PT DENIES FURTHER NEEDS AT THIS TIME. CALL LIGHT IN REACH.
--- NOTE | 2023-11-24 09:20 | NUR ---
IV ATTEMPT IN R WRIST, FAILED ATTEMPT, PT SITS UP TO VOMIT INTO EMESIS BAG. PT THEN STATES "I FEEL REALLY WEAK AND DIZZY, I NEED TO LAY DOWN", PT LYING ON BED WITH HOB >30 DEGREES. EMS ARRIVES TO TRANSFER PT. BLOOD GLUCOSE TAKEN D/T SYMPTOMS AND HX OF DIABETES, BLOOD GLUCOSE 117. BP WNL. REPORT GIVEN TO EMS, PT TRANSFERED TO STRETCHER WITH MINIMAL ASSISTANCE. IV PUMP WITH FLUIDS AND ABX SENT WITH PT. PT PROVIDED WARM BLANKETS D/T WEATHER CONDITIONS. ARRIVES TO ROOM WITH PT BELONGINGS TO TRANSFER WITH, STATES HE WON'T BE GOING WITH PT FOR TRANSFER. MAGNESIUM NOT GIVEN D/T PT HAVING ABX THAT WERE NOT COMPATIBLE IN PRIMARY IV, SECOND IV NOT ABLE TO BE STARTED PRIOR TO EMS ARRIVAL, MAGNESIUM LEVEL COMMUNICATED TO EMS AND TO HOSPITAL ACCEPTING TRANSFER.
[2023-11-24 11:43] VITALS: BP 114/56
--- NOTE | 2023-11-25 11:16 | DS ---
[facility] [address] [place], [place] [address] Signed ADMISSION DATE: 11/23/2023 DISCHARGE DATE: 11/24/2023 FINAL DIAGNOSES: 1. Perforated diverticulitis. 2. History of pulmonary embolism on Eliquis and aspirin. PROCEDURE: CT scan of abdomen and pelvis. HISTORY OF PRESENT ILLNESS: Jennifer is a 73-year-old female from our community, who [place] with her . She was not feeling well, so he had gone out to get the car. Apparently, she had a syncopal episode while sitting in the chair. They decided to bring her to the emergency room for evaluation. In the emergency room, she was found in IC systems fluids and her white count was elevated with some tenderness in the suprapubic area. A CT scan confirmed perforated sigmoid diverticulitis. She has locules air around the sigmoid, but also scattered around the abdomen. I was operating last night. She was admitted through the ER and our hospitalist service. She received IV fluids, cefepime, and Flagyl. I had seen her last night after I finished operating little after midnight. This morning she clinically is a little worse. She is not feeling well. She seems to be more sickly and she has been vomiting this morning. Her white count was 13,000, it is now 15,000. Lactic acid fortunately remains normal. Her creatinine is off a little bit at 1.49. I explained to Jennifer our hospitalist and her , Sea that she is approaching the need for surgery. We do not have the medication available our hospital to reverse the Eliquis which is normally reserved for intracranial bleeds. In the meantime, we had contacted our [facility], who had been gracious enough to accept her in transfer. We are going to be getting over and will be doing a direct hospital transfer. Discharge plans, medications, Jennifer is going to be sent from our hospital over to [facility] under the care Dr. Norbert Rodriguez. She will go through the ER for evaluation and bed placement. We look forward to their input. I explained to Dr. Rodriguez and Jennifer and her , Sea that I am available locally if she needs ongoing postoperative care, Followup colonoscopy and so forth. Jennifer and her Sea have expressed understanding and agreed with the above plan. Elvin Russell MD Electronically Signed By: ELVNI RUSSELL MD 11/25/23 1116 PATIENT NAME: JENNIFER CHAU DISCHARGE SUMMARY DATE OF : 50 REPORT #: [id number] PHYSICIAN: ELVIN RUSSELL MD PCP: LYLY MONTENEGRO MD REPORT IS CONFIDENTIAL AND NOT TO BE RELEASED WITHOUT AUTHORIZATION [facility] [address] [place] [id number] Signed [facility]/MODL /[id number] cc: Lyly Montenegro MD Patient Chart Elvin Russell MD Copies: LYLY MONTENEGRO MD, ANDREW L MD ~ Electronically Signed By: ELVIN RUSSELL MD 11/25/23 1116 PATIENT NAME: JENNIFER CHAU DISCHARGE SUMMARY DATE OF : 50 REPORT #: [id number] PHYSICIAN: ELVIN RUSSELL MD PCP: LYLY MONTENEGRO MD REPORT IS CONFIDENTIAL AND NOT TO BE RELEASED WITHOUT AUTHORIZATION
== END 2023-11-24 09:34 | disposition short-term general hospital (02) | DRG 392 ==
LOC: ED 17:35 → MS 21:07
PROVIDERS: Emergency Medicine; Internal Medicine; ADMIT Colon & Rectal Surgery; ATTEND Colon & Rectal Surgery
DX: K57.20 Diverticulitis of large intestine with perforation and abscess without bleeding (principal); I10 Essential (primary) hypertension; K21.9 Gastro-esophageal reflux disease without esophagitis; E83.42 Hypomagnesemia; Z90.49 Acquired absence of other specified parts of digestive tract; Z98.890 Other specified postprocedural states; Z90.710 Acquired absence of both cervix and uterus; Z86.711 Personal history of pulmonary embolism; Z79.01 Long term (current) use of anticoagulants; Z79.82 Long term (current) use of aspirin; Z87.891 Personal history of nicotine dependence; Z88.8 Allergy status to other drugs, medicaments and biological substances; Z88.5 Allergy status to narcotic agent; Z86.718 Personal history of other venous thrombosis and embolism; Z79.899 Other long term (current) drug therapy
CPT/HCPCS: 36415; 51798; 74176; 80053; 81001; 83605; 83735; 84100; 84484; 85025; 93005; 93010; 96361; 96365; 96375; 99285-25; J0692; J1170; J2270; J2405; J7121